=== PATIENT | female | born 1980 | race African-American/Black ===

== ENCOUNTER 2018-04-26 08:00 | Day surgery (SDC) | payer OTHER ==
[2018-04-26 08:26] VITALS: BMI 51.7
[2018-04-26 09:12] VITALS: TEMP 97.9
[2018-04-26 09:14] VITALS: PULSE 81
--- NOTE | 2018-04-26 09:18 | SPEC ---
DATE OF OPERATION: 04/26/2018 SURGEON: Jose Miguel Salas M.D. PREOPERATIVE DIAGNOSIS: To evaluate anatomy prior to vertical sleeve gastrectomy. POSTOPERATIVE DIAGNOSIS: Normal gross anatomy. PROCEDURE: Upper endoscopy/esophagogastroduodenoscopy. SPECIMEN: None. ANESTHESIA: MAC. ESTIMATED BLOOD LOSS: 0 mL REASON FOR PROCEDURE: This is a 38-year-old female who presents for an upper endoscopy prior to vertical sleeve gastrectomy to evaluate anatomy. In order to evaluate the patient's anatomy and to evaluate anything that would preclude the upcoming vertical sleeve gastrectomy, an upper endoscopy was scheduled. The risks and benefits of the procedure were explained. These included bleeding; infection; sore throat; trauma to the teeth, gums, or oral cavity; rapid or irregular heart beat; respiratory failure; aspiration; hypotension or low blood pressure; damage to the esophagus, stomach, or nearby structures; damage to the intestines; perforation; leak; and . Patient understood and signed informed consent. DESCRIPTION OF PROCEDURE: The patient was placed in the left lateral decubitus position. The patient had signed informed consent. All mechanical and medical equipment was checked for proper function. Hand hygiene and appropriate measures for infection prevention were taken. After the risks, benefits, and alternatives of the procedure were thoroughly explained and informed consent was verified, timeout was performed. The patient was anesthetized, and the endoscope was introduced through the mouth. The endoscope was advanced into the esophagus, GE junction, stomach, up to the level of the pylorus. Gross anatomy was noted to be within normal limits without any gross lesions or ulcers that would preclude the upcoming surgery. The stomach was suctioned, and the endoscope slowly withdrawn and removed. The patient tolerated the procedure well and was transferred to the recovery room in stable condition. JOSE MIGUEL SALAS M.D. [id number]
[2018-04-26 09:54] VITALS: BP 126/78
== END 2018-04-26 10:30 | disposition home or self-care (01) ==
LOC: JASU-ENDO 08:00
PROVIDERS: ATTEND Surgery
PROC: 0DJ08ZZ Inspection of Upper Intestinal Tract, Via Natural or Artificial Opening Endoscopic (ICD-10-PCS; principal; 2018-04-26 09:00)
DX: Z01.818 Encounter for other preprocedural examination (principal); E66.01 Morbid (severe) obesity due to excess calories
CPT/HCPCS: 84703